=== PATIENT | male | born 1985 | race African-American/Black ===

== ENCOUNTER 2017-01-30 14:20 | Emergency (ER) | payer BC, OTHER ==
[2017-01-30 14:28] VITALS: TEMP 98; BMI 28.9
--- NOTE | 2017-01-30 15:21 | PDOC ---
History of Present Illness - General History Source: Patient Exam Limitations: No Limitations - History of Present Illness Initial Comments: 01/30/17 15:43 31 year old male with a PMHx of Graves disease who presents to the ED with intermittent palpitations for 2 weeks. Patient reports he ran out of his medications a few weeks ago and has not been able to get them refilled. He reports associated sweating and difficulty sleeping. He denies nausea, vomiting , diarrhea. He denies chest pain, SOB. Medications: Propranolol 10 mg 3x daily, Methimazole 10 mg 2x daily <Jennifer Mtz - Last Filed: 01/30/17 15:43> <Tariq Yo - Last Filed: 01/30/17 16:59> - General Chief Complaint: Palpitations Stated Complaint: PALPITATION Time Seen by Provider: 01/30/17 15:20 Past History <Jennifer Mtz - Last Filed: 01/30/17 15:43> - Past Medical History HTN: Yes Thyroid Disease: Yes (GRAVES DISEASE) - Surgical History Appendectomy: Yes - Psycho/Social/Smoking Cessation Hx Anxiety: No Suicidal Ideation: No Smoking History: Never smoked Have you smoked in the past 12 months: No Information on smoking cessation initiated: No Hx Alcohol Use: No Drug/Substance Use Hx: No Substance Use Type: None <Tariq Yo - Last Filed: 01/30/17 16:59> - Past Medical History Allergies/Adverse Reactions: Allergies Allergy/AdvReac Type Severity Reaction Status Date / Time No Known Allergies Allergy Verified 01/30/17 14:28 Home Medications: Ambulatory Orders Methimazole 0 mg PO DAILY 08/11/16 Propranolol HCl 0 mg PO DAILY 08/11/16 Methimazole 10 mg PO BID #60 tablet 01/30/17 Propranolol HCl 10 mg PO TID #90 tablet 01/30/17 Review of Systems - Review of Systems Able to Perform ROS?: Yes Comments:: 01/30/17 15:44 GENERAL/CONSTITUTIONAL: (+) diaphoresis, difficulty sleeping. No fever or chills. No weakness. HEAD, EYES, EARS, NOSE AND THROAT: No change in vision. No ear pain or discharge. No sore throat. CARDIOVASCULAR: (+) palpitations. No chest pain or shortness of breath. RESPIRATORY: No cough, wheezing, or hemoptysis. GASTROINTESTINAL: No nausea, vomiting, diarrhea or constipation. GENITOURINARY: dysuria, frequency, or change in urination. MUSCULOSKELETAL: No joint or muscle swelling or pain. No neck or back pain. SKIN: No rash NEUROLOGIC: No headache, vertigo, loss of consciousness, or change in strength/ sensation. ENDOCRINE: No increased thirst. No abnormal weight change. HEMATOLOGIC/LYMPHATIC: No anemia, easy bleeding, or history of blood clots. ALLERGIC/IMMUNOLOGIC: No hives or skin allergy. <Jennifer Mtz - Last Filed: 01/30/17 15:43> *Physical Exam - Vital Signs Last Vital Signs Temp Pulse Resp BP Pulse Ox 98 F 73 18 153/102 99 01/30/17 14:01/30/17 14:01/30/17 14:01/30/17 14:01/30/17 14:26 - Physical Exam Comments: 01/30/17 15:58 GENERAL: Awake, alert, and fully oriented, in no acute distress HEAD: No signs of trauma EYES: No proptosis, no exophthalmos, no lid lag. PERRLA, EOMI, sclera anicteric , conjunctiva clear ENT: Auricles normal inspection, hearing grossly normal, nares patent, oropharynx clear without exudates. Moist mucosa NECK: No palpable masses. Normal ROM, supple, no lymphadenopathy, JVD LUNGS: Breath sounds equal, clear to auscultation bilaterally. No wheezes, and no crackles HEART: Regular rate and rhythm, normal S1 and S2, no murmurs, rubs or gallops ABDOMEN: Soft, nontender, normoactive bowel sounds. No guarding, no rebound. No masses EXTREMITIES: Normal range of motion, no edema. No clubbing or cyanosis. No cords , erythema, or tenderness NEUROLOGICAL: Cranial nerves II through XII grossly intact. Normal speech, normal gait SKIN: Warm, Dry, normal turgor, no rashes or lesions noted. <Jennifer Mtz - Last Filed: 01/30/17 15:43> - Vital Signs Last Vital Signs Temp Pulse Resp BP Pulse Ox 98 F 73 18 153/102 99 01/30/17 14:01/30/17 14:01/30/17 14:01/30/17 14:01/30/17 14:26 <Tariq Yo - Last Filed: 01/30/17 16:59> Heart Score/ECG Review - ECG Intrepretation Rhythm: Regular Rhythm Comment:: 01/30/17 16:58 normal intervals, no QT prolongation, no delta wave. unremarkable EKG, rate 74 - [place]: Normal - ECG Impressions Normal ECG: Yes Non-specific ST Elevation: No Ischemic Changes: No <Tariq Yo - Last Filed: 01/30/17 16:59> ED Treatment Course - LABORATORY CBC & Chemistry Diagram: 01/30/17 16:04 01/30/17 16:04 <Tariq Yo - Last Filed: 01/30/17 16:59> Medical Decision Making - Medical Decision Making 01/30/17 16:04 31M with h/o grave's presents with intermittent palpitations x 3 weeks since running out of his propranolol and methimazole. Symptoms possibly related to hyperthyroidism. Pt with normal vitals here, but pt states he has been asymptomatic in ER. - labs, TSH, T4 - Propranolol 10mg - F/u endocrine <Tariq Yo - Last Filed: 01/30/17 16:59> *DC/Admit/Observation/Transfer - Attestations Scribe Attestion: 01/30/17 15:59 Documentation prepared by Jennifer Mtz, acting as nurses medical assistants phlebotomists for Tariq Yo MD. <Jennifer Mtz - Last Filed: 01/30/17 15:43> <Tariq Yo - Last Filed: 01/30/17 16:59> Diagnosis at time of Disposition: Palpitations - Discharge Dispostion Disposition: HOME - Prescriptions Prescriptions: Methimazole 10 mg PO BID #60 tablet Propranolol HCl 10 mg PO TID #90 tablet - Referrals Referrals: Akbar Flores MD [Staff Physician] - - Patient Instructions Printed Discharge Instructions: DI for Graves Disease Additional Instructions: Continue taking your methimazole and propranolol as prescribed. shop superintendent your refill at [facility]. Follow up with an optimization engineer as soon as possible (within 1 week). Call the above number to make an appointment.
[2017-01-30] MEDS ORDERED: PROPRANOLOL HCL 10 MG TABLET (FP) PO ONE (16:02)
[2017-01-30] MEDS ORDERED: PROPRANOLOL HCL 10 MG TABLET (FP) ONE (16:08)
[2017-01-30 16:23] LABS: BASOPHIL 0.5 % (0-2.0); MCH 31.4 pg (25.7-33.7); MCHC 33.4 g/dl (32.0-35.9); MEAN CELL VOLUME 94.2 fl (80-96); PLATELET COUNT 175 K/MM3 (134-434); RDW 12.6 % (11.9-15.9)
[2017-01-30 16:59] LABS: ALBUMIN 4.7 g/dl (3.4-5.0); ALK PHOS 106 U/L (45-117); ANION GAP 8 (8-16); BILIRUBIN,TOTAL 0.5 mg/dL (0.2-1.0); CALCIUM 9.3 mg/dL (8.5-10.1); CO2 28 mmol/L (21-32); CREATININE 1.2 mg/dL (0.7-1.3); GLUCOSE,RANDOM 85 mg/dL (74-106); MAGNESIUM 2.3 mg/dL (1.8-2.4); SGOT/AST 20 U/L (15-37); SGPT/ALT 47 U/L (12-78); TOT PROT 8.2 g/dl (6.4-8.2)
[2017-01-30 17:05] LABS: FREE T4 0.95 ng/dl (0.76-1.16); THYROID STIMULATING HORMONE 2.67 uIU/ml (0.358-3.74)
[2017-01-30 17:35] VITALS: BP 150/104; PULSE 66
--- NOTE | 2017-02-01 08:19 | EKG ---
Test Reason : Blood Pressure : / mmHG Vent. Rate : 074 BPM Atrial Rate : 074 BPM P-R Int : 164 ms QRS Dur : 094 ms QT Int : 374 ms P-R-T Axes : 046 044 028 degrees QTc Int : 415 ms NORMAL SINUS RHYTHM WITH SINUS ARRHYTHMIA NORMAL ECG WHEN COMPARED WITH ECG OF 11-AUG-2016 17:00, NO SIGNIFICANT CHANGE WAS FOUND Confirmed by KIRK TIAN MD ([id number]) on 02/01/2017 8:18:50 AM Referred By: Confirmed By:KIRK TIAN MD
== END 2017-01-30 17:35 | disposition home or self-care (01) ==
LOC: JER 14:20
DX: R00.2 Palpitations (principal); E05.00 Thyrotoxicosis with diffuse goiter without thyrotoxic crisis or storm; I10 Essential (primary) hypertension
CPT/HCPCS: 36415; 80053; 83735; 84439; 84443; 85025; 93005; 93010; 99283-25

== ENCOUNTER 2017-10-15 00:31 | Emergency (ER) | payer BC, OTHER ==
[2017-10-15 01:15] VITALS: BP 144/96; PULSE 62; TEMP 98.2; BMI 28.1
--- NOTE | 2017-10-15 01:25 | PDOC ---
History of Present Illness - General Chief Complaint: Palpitations Stated Complaint: PALPITATIONS Time Seen by Provider: 10/15/17 01:22 History Source: Patient Exam Limitations: No Limitations - History of Present Illness Initial Comments: CHIEF COMPLAINT: 32 y/o afebrile male with PMH HTN c/o palpitations, usually when sleeping, for the past few weeks. HISTORY OF PRESENT ILLNESS: The patient states he's noticed when he's sleeping he wakes up a lot and has felt his heart racing when he wakes up. His mom told him that he snores a lot. The patient denies f/c, n/v/d, CP, SOB, cough, hemoptysis, abd pain, palpitations while awake/exercising, family history of sudden cardiac , and all other symptoms. Vital signs on arrival are within normal limits. REVIEW OF SYSTEMS: GENERAL/CONSTITUTIONAL: No fever/chills. No weakness. No weight change. HEAD, EYES, EARS, NOSE AND THROAT: No change in vision. No ear pain or discharge. No sore throat. CARDIOVASCULAR: +palptations x a few weeks while sleeping. No chest pain or shortness of breath. RESPIRATORY: No cough, wheezing, or hemoptysis. GASTROINTESTINAL: No abd pain, nausea, vomiting, diarrhea. GENITOURINARY: No dysuria, frequency, or change in urination. MUSCULOSKELETAL: No joint or muscle swelling or pain. No neck or back pain. SKIN: No rash or easy bruising. NEUROLOGIC: No headache, vertigo, loss of consciousness, or loss of sensation. PHYSICAL EXAM: GENERAL: The patient is awake, alert, and fully oriented, in no acute distress. He is very well appearing, ambulatory, in NAD or obvious discomfort. HEAD: Normal with no signs of trauma. ENT: Pupils equal, round and reactive to light, extraocular movements intact, sclera anicteric, conjunctiva clear. Neck supple. LUNGS: Clear to auscultation bilaterally. Normal excursion. No respiratory distress or use of accessory muscles. CV: slow rate with regular rhythm, S1/S2, no MRG. Cap refill < 2 sec. ABDOMEN: Soft, non-distended, non-tender even to deep palpation, no hepatomegaly or splenomegaly, no masses. EXTREMITIES: Normal range of motion, no edema. NEUROLOGICAL: Normal speech, normal gait. CN II-XII grossly intact. PSYCH: Normal mood, normal affect. SKIN: Warm, dry, normal turgor, no rashes or lesions noted. Past History - Past Medical History Allergies/Adverse Reactions: Allergies Allergy/AdvReac Type Severity Reaction Status Date / Time No Known Allergies Allergy Verified 10/15/17 01:12 Home Medications: Ambulatory Orders Propranolol HCl 10 mg PO TID #90 tablet 01/30/17 COPD: No HTN: Yes Thyroid Disease: Yes (GRAVES DISEASE) - Surgical History Appendectomy: Yes - Suicide/Smoking/Psychosocial Hx Smoking History: Never smoked Have you smoked in the past 12 months: No Information on smoking cessation initiated: No Hx Alcohol Use: No Drug/Substance Use Hx: No Substance Use Type: None *Physical Exam - Vital Signs Last Vital Signs Temp Pulse Resp BP Pulse Ox 98.2 F 62 18 144/96 100 10/15/17 01:12 10/15/17 01:12 10/15/17 01:12 10/15/17 01:12 10/15/17 01:12 Heart Score/ECG Review - ECG Intrepretation Comment:: Twelve-lead EKG was performed and reviewed by Dr. Dewitt. There is sinus bradycardia. The axis is normal. The intervals are normal. There are no ST or T wave abnormalities. Impression: Otherwise normal twelve-lead EKG Medical Decision Making - Medical Decision Making A/P: 32 y/o male with heart racing when waking up from sleep with reported history of snoring. suspect possible sleep apnea. EKG shows sinus jeb. Will d/c to home with instructions to f/u with upset welding machine operator for home heart rate monitor and with Dr. Curtis for sleep study. Pt instructed to return to the ER with any worsening or concerning symptoms. The patient verbalizes understanding of all instructions, has no further questions and is awaiting discharge. *DC/Admit/Observation/Transfer Diagnosis at time of Disposition: Palpitations - Discharge Dispostion Disposition: HOME Condition at time of disposition: Good - Referrals Referrals: Donavan Curtis [Primary Care Provider] - Call tomorrow Joo Philip MD [Staff Physician] - 1 week - Patient Instructions Printed Discharge Instructions: DI for Palpitations Additional Instructions: Discharge Instructions: -Your EKG showed sinus bradycardia with a HR of 54bpm -Please follow up with Dr. Philip within 1 week for a possible home heart rate monitor -Follow up with Dr. Curtis for a sleep study -Return to the ER immediately with any worsening or concerning symptoms - Post Discharge Activity
--- NOTE | 2017-10-15 09:35 | EKG ---
Test Reason : Blood Pressure : / mmHG Vent. Rate : 054 BPM Atrial Rate : 054 BPM P-R Int : 168 ms QRS Dur : 092 ms QT Int : 424 ms P-R-T Axes : 052 034 036 degrees QTc Int : 402 ms SINUS BRADYCARDIA OTHERWISE NORMAL ECG WHEN COMPARED WITH ECG OF 30-JAN-2017 14:27, NO SIGNIFICANT CHANGE WAS FOUND Confirmed by KIRK TIAN MD ([id number]) on 10/15/2017 9:34:45 AM Referred By: Confirmed By:KIRK TIAN MD
== END 2017-10-15 01:50 | disposition home or self-care (01) ==
LOC: JER 00:31
DX: R00.2 Palpitations (principal); E05.00 Thyrotoxicosis with diffuse goiter without thyrotoxic crisis or storm; I10 Essential (primary) hypertension
CPT/HCPCS: 93005; 93010; 99282-25

== ENCOUNTER 2018-02-27 01:10 | Emergency (ER) | payer BC, OTHER ==
--- NOTE | 2018-02-27 02:51 | PDOC ---
History of Present Illness - History of Present Illness Initial Comments: 02/27/18 03:34 The patient is a 32 year old male, with a significant past medical history of hypothyroidism s/p hyperthyroidism, who presents to the emergency department with palpitations starting at 11:30PM last night. He states he felt his heartbeat was fast and strong. He reports the episode occurred for about 20 minutes before resolving on its own. He reports a similar episode about 1-2 months ago which resolved on its own at the time. He reportedly drove to [place] and returned about 2 weeks ago. He denies weight gain or loss. He denies changes in appetite. The patient denies chest pain, shortness of breath, headache and dizziness. The patient denies fever, chills, nausea, vomit, diarrhea and constipation. The patient denies dysuria, frequency, urgency and hematuria. Allergies: NKDA Past surgical history: none reported. Social history: denies tobacco, ETOH, and illicit drug use PCP - Dr. Donavan Curtis Endo: Dr. Flores <Ashlee Vang - Last Filed: 02/27/18 06:57> - General History Source: Patient Exam Limitations: No Limitations <Deepika Manzo - Last Filed: 02/28/18 05:19> - General Stated Complaint: PALPITATIONS Time Seen by Provider: 02/27/18 02:50 Past History <Ashlee Vnag - Last Filed: 02/27/18 06:57> - Past Medical History COPD: No HTN: Yes Thyroid Disease: Yes (GRAVES DISEASE) - Surgical History Appendectomy: Yes - Suicide/Smoking/Psychosocial Hx Smoking History: Never smoked Have you smoked in the past 12 months: No Hx Alcohol Use: No Drug/Substance Use Hx: No Substance Use Type: None <Deepika Manzo - Last Filed: 02/28/18 05:19> - Past Medical History Allergies/Adverse Reactions: Allergies Allergy/AdvReac Type Severity Reaction Status Date / Time No Known Allergies Allergy Verified 02/27/18 03:25 Home Medications: Ambulatory Orders Levothyroxine [Synthroid -] 50 mcg PO DAILY 01/07/18 Review of Systems - Review of Systems Able to Perform ROS?: Yes Comments:: 02/27/18 03:35 CONSTITUTIONAL: Absent: fever, no chills, no fatigue EYES: Absent: visual changes ENT: Absent: ear pain, no sore throat CARDIOVASCULAR: (+) Palpitations. Absent: chest pain, RESPIRATORY: Absent: cough, no SOB GASTROINTESTINAL: Absent: abdominal pain, no nausea, no vomiting, no constipation, no diarrhea GENITOURINARY: Absent: dysuria, no frequency, no hematuria MUSCULOSKELETAL: Absent: back pain, no arthralgia, no myalgia SKIN: Absent: rash NEURO: Absent: headache <Ashlee Vang - Last Filed: 02/27/18 06:57> *Physical Exam - Vital Signs Last Vital Signs Temp Pulse Resp BP Pulse Ox 97.4 F L 88 18 123/77 98 02/27/18 01:30 02/27/18 01:30 02/27/18 01:30 02/27/18 01:30 02/27/18 01:30 - Physical Exam Comments: 02/27/18 03:36 GENERAL: The patient is in no acute distress. HEAD: Normal with no signs of trauma. EYES: PERRLA, EOMI, sclera anicteric, conjunctiva clear. ENT: Ears normal, nares patent, oropharynx clear without exudates. Moist mucous membranes. NECK: Normal range of motion, supple without lymphadenopathy, JVD, or masses. LUNGS: Breath sounds equal, clear to auscultation bilaterally. No wheezes, and no crackles. HEART:(+) Irregular rhythm, normal rate. normal S1 and S2 without murmur, rub or gallop. ABDOMEN: Soft, nontender, normoactive bowel sounds. No guarding, no rebound. No masses palpable. EXTREMITIES: Normal range of motion, no edema. No clubbing or cyanosis. No erythema, or tenderness. NEUROLOGICAL: Cranial nerves II through XII grossly intact. Normal speech. No focal neurological deficits. MUSCULOSKELETAL: Back non-tender to palpation, no CVA tenderness SKIN: Warm, Dry, normal turgor, no rashes or lesions noted. <Ashlee Vang - Last Filed: 02/27/18 06:57> Heart Score/ECG Review - ECG Intrepretation Comment:: 02/27/18 03:36 EKg was read by Dr. Manzo at 03:22 Impression: Atrial Fibrillation. Vent Rate 85 bpm <Ashlee Vang - Last Filed: 08/31/18 06:57> ED Treatment Course - LABORATORY CBC & Chemistry Diagram: 02/27/18 03:20 02/27/18 03:20 <Ashlee Vang - Last Filed: 02/27/18 06:57> - LABORATORY CBC & Chemistry Diagram: 02/27/18 03:20 02/27/18 03:20 <Deepika Manzo - Last Filed: 02/28/18 05:19> Medical Decision Making - Medical Decision Making 02/27/18 06:17 Dr. Ortega, cardiology, was called at this time via phone answering service and the case was discussed. Dr. Ortega states the patient can be discharged only if he can call the office at 8:30AM to schedule an appointment today. <Ashlee Vang - Last Filed: 02/27/18 06:57> - Medical Decision Making 02/27/18 03:18 Mr. Newman is a 32-year-old male with a history of Graves' disease, now with hypothyroidism currently taking Synthroid. He presents emergency department with a complaint of palpitations. These symptoms occurred at 11:30 last night, lasting less than 20 minutes and self resolving. He had a similar episode approximately one month ago. His symptoms were not associated with chest pain, shortness of breath. Patient had a recent travel to [place], 2 weeks ago, drove there This patient's examination is normal: He is awake, alert, answers all questions Heart is regular with no murmurs Lungs are clear to auscultation bilaterally No abdominal tenderness DD: Hyperthyroid, Arrhythmia - SVT, Afib ACS unlikely Will do: EKG, labs including TSH Will reassess Laboratory Tests 02/27/18 02/27/18 02/27/18 03:20 03:20 05:28 WBC 5.2 Hgb 15.8 Hct 45.5 Plt Count 204 BUN 10 Creatinine 1.1 Creatine Kinase 153 Creatine Kinase Index 0.6 CK-MB (CK-2) < 1.00 Troponin I < 0.02 TSH 0.16 L D [id number] 0 making stroke very low, pt likely will not need anticoagulation Furthermore, pt TSH is low, ? afib related to hyperthyroid state? Given Asa 325mg po 02/27/18 06:[address] Gibson Recommends calling Dr Saldivar this am to ensure prompt follow up prior to discharge Pt signed out to Dr Garcia pending discussion with Yariel Pt asked to follow up with Dr. Flores for adjustment of synthroid dosing Clinical Impression: New Onset Atrial Fibrillation, initial presentation Hyperthyroid state, initial presentation <Deepika Manzo - Last Filed: 02/28/18 05:19> *DC/Admit/Observation/Transfer - Attestations Scribe Attestion: 02/27/18 03:36 Documentation prepared by Ashlee Vang, acting as medical practice administrator for Deepika Manzo MD <Ashlee Vang - Last Filed: 02/27/18 06:57> - Discharge Dispostion Decision to Admit order: No <Deepika Manzo - Last Filed: 02/28/18 05:19> Diagnosis at time of Disposition: Afib Qualifiers: Atrial fibrillation type: unspecified Qualified Code(s): I48.91 - Unspecified atrial fibrillation - Discharge Dispostion Disposition: HOME Condition at time of disposition: Stable - Referrals Referrals: Luis M Saldivar MD [Staff Physician] - - Patient Instructions Printed Discharge Instructions: DI for Atrial Fibrillation Additional Instructions: Thank you for coming in to the ER today Please be sure to follow up TODAY with the multicraft operator Return to the ER for any other concerns or complaints Call [phone] (cardiology) to schedule a same day appointment for today. Tell Davey (field health officer) that we had consulted with Dr. Schuler and he requests someone see you today. Print Language: [place]
[2018-02-27 03:25] VITALS: BMI 26.6
[2018-02-27 03:41] LABS: BASO % 0.7 % (0-2.0); EOS % 4.9 % (0-4.5); HEMATOCRIT 45.5 % (35.4-49); HEMOGLOBIN 15.8 GM/dL (11.7-16.9); LYMPH % 38.6 % (8-40); MCHC 34.7 g/dl (32.0-35.9); MONO % 8.1 % (3.8-10.2); NEUT % 47.7 % (42.8-82.8); PLATELET COUNT 204 K/MM3 (134-434); RBC 4.94 M/mm3 (4.00-5.60); RDW 12.1 % (11.9-15.9); WHITE BLOOD COUNT 5.2 K/mm3 (4.0-10.0)
[2018-02-27 04:01] LABS: ALBUMIN 4.1 g/dl (3.4-5.0); ANION GAP 7 MMOL/L (8-16); BILIRUBIN,TOTAL 0.4 mg/dL (0.2-1.0); BLOOD UREA NITROGEN 10 mg/dL (7-18); CALCIUM 8.6 mg/dL (8.5-10.1); CHLORIDE 106 mmol/L (98-107); CO2 27 mmol/L (21-32); CREATININE 1.1 mg/dL (0.7-1.3); GLUCOSE,RANDOM 98 mg/dL (74-106); POTASSIUM 3.9 mmol/L (3.5-5.1); SGOT/AST 22 U/L (15-37); SGPT/ALT 37 U/L (12-78); SODIUM 140 mmol/L (136-145); TOT PROT 7.5 g/dl (6.4-8.2)
[2018-02-27 04:10] LABS: ALK PHOS 71 U/L (45-117)
[2018-02-27] MEDS ORDERED: ASPIRIN 325 MG TABLET PO ONE (06:57)
[2018-02-27] MEDS ORDERED: ASPIRIN 325 MG TABLET ONE (07:53)
--- NOTE | 2018-02-27 07:57 | PDOC ---
*Physical Exam - Vital Signs Last Vital Signs Temp Pulse Resp BP Pulse Ox 97.4 F L 88 18 123/77 98 02/27/18 01:30 02/27/18 01:30 02/27/18 01:30 02/27/18 01:30 02/27/18 01:30 <Kami Shetty - Last Filed: 02/27/18 08:32> - Vital Signs Last Vital Signs Temp Pulse Resp BP Pulse Ox 97.4 F L 88 18 123/77 98 02/27/18 01:30 02/27/18 01:30 02/27/18 01:30 02/27/18 01:30 02/27/18 01:30 <Tay Garcia - Last Filed: 02/27/18 09:22> ED Treatment Course - LABORATORY CBC & Chemistry Diagram: 02/27/18 03:20 02/27/18 03:20 - ADDITIONAL ORDERS Additional order review: Laboratory Results 02/27/18 02/27/18 05:28 03:20 Sodium 140 Potassium 3.9 Chloride 106 Carbon Dioxide 27 Anion Gap 7 L BUN 10 Creatinine 1.1 Creat Clearance w eGFR > 60 Random Glucose 98 Calcium 8.6 Total Bilirubin 0.4 AST 22 ALT 37 D Alkaline Phosphatase 71 Creatine Kinase 153 Creatine Kinase Index 0.6 CK-MB (CK-2) < 1.00 Troponin I < 0.02 Total Protein 7.5 Albumin 4.1 TSH 0.16 L D 02/27/18 03:20 RBC 4.94 MCV 92.0 MCHC 34.7 RDW 12.1 MPV 9.0 Neutrophils % 47.7 D Lymphocytes % 38.6 D Monocytes % 8.1 Eosinophils % 4.9 H D Basophils % 0.7 - Medications Given in the ED: ED Medications Discontinued Medications Generic Name Dose Route Start Last Admin Trade Name Freq PRN Reason Stop Dose Admin Aspirin 325 mg 02/27/18 06:57 02/27/18 07:52 Asa - PO 02/27/18 06:58 325 mg ONCE ONE Administration <Kami Shetty - Last Filed: 02/27/18 08:32> - LABORATORY CBC & Chemistry Diagram: 02/27/18 03:20 02/27/18 03:20 - ADDITIONAL ORDERS Additional order review: Laboratory Results 02/27/18 02/27/18 05:28 03:20 Sodium 140 Potassium 3.9 Chloride 106 Carbon Dioxide 27 Anion Gap 7 L BUN 10 Creatinine 1.1 Creat Clearance w eGFR > 60 Random Glucose 98 Calcium 8.6 Total Bilirubin 0.4 AST 22 ALT 37 D Alkaline Phosphatase 71 Creatine Kinase 153 Creatine Kinase Index 0.6 CK-MB (CK-2) < 1.00 Troponin I < 0.02 Total Protein 7.5 Albumin 4.1 TSH 0.16 L D 02/27/18 03:20 RBC 4.94 MCV 92.0 MCHC 34.7 RDW 12.1 MPV 9.0 Neutrophils % 47.7 D Lymphocytes % 38.6 D Monocytes % 8.1 Eosinophils % 4.9 H D Basophils % 0.7 - Medications Given in the ED: ED Medications Discontinued Medications Generic Name Dose Route Start Last Admin Trade Name Freq PRN Reason Stop Dose Admin Aspirin 325 mg 02/27/18 06:57 02/27/18 07:52 Asa - PO 02/27/18 06:58 325 mg ONCE ONE Administration <Tay Garcia - Last Filed: 02/27/18 09:22> Medical Decision Making - Medical Decision Making Paged Dr. Saldivar - Cardiology 02/27/18 08:32 <Kami Shetty - Last Filed: 02/27/18 08:32> - Medical Decision Making 02/27/18 07:56 pt signd out to me from Dr. Jovany [facility] of [facility] now on synthroid presents with intermittent episode of palpitations last night, found to be in afib. no cp, sob bu tprior history of driving from [facility] 1 month ago. awaiting dimer. will also touch base with cardiology to see if we can get him into the office for follow up today. [id number] = 0 02/27/18 08:[address] Moser (cardiology) notes that Dr. Saldivar is on vacation, but he can clal their office for an appointment today [phone] awiting dimer 02/27/18 09:16 Pts dimer is negative pt feel simproved will dc the pt to fu with cardiology today return precautions were discused pt currently asymptomatic. I discussed the physical exam findings, ancillary test results and final diagnoses with the patient. I answered all of the patient's questions. The patient was satisfied with the care received and felt comfortable with the discharge plan and treatment plan. The patient will call their primary care physician within 24 hours to arrange follow-up and will return to the Emergency Department with any new, persistent or worsening symptoms. <Tay Garcia - Last Filed: 02/27/18 09:22> *DC/Admit/Observation/Transfer <Kami Shetty - Last Filed: 02/27/18 08:32> <Tay aGrcia - Last Filed: 02/27/18 09:22> Diagnosis at time of Disposition: Afib Qualifiers: Atrial fibrillation type: unspecified Qualified Code(s): I48.91 - Unspecified atrial fibrillation - Discharge Dispostion Condition at time of disposition: Stable - Referrals Referrals: Luis M Saldivar MD [Staff Physician] - - Patient Instructions Printed Discharge Instructions: DI for Atrial Fibrillation Additional Instructions: Thank you for coming in to the ER today Please be sure to follow up TODAY with the pipe installer Return to the ER for any other concerns or complaints Call [phone] (cardiology) to schedule a same day appointment for today. Tell Davey (chief business officer) that we had consulted with Dr. Schuler and he requests someone see you today. Print Language: [place]MAN[place] - Post Discharge Activity
[2018-02-27 09:31] VITALS: BP 134/86; PULSE 82; TEMP 97.8
--- NOTE | 2018-02-27 10:30 | EKG ---
Test Reason : Blood Pressure : / mmHG Vent. Rate : 085 BPM Atrial Rate : 081 BPM P-R Int : 000 ms QRS Dur : 094 ms QT Int : 332 ms P-R-T Axes : 000 055 019 degrees QTc Int : 395 ms ATRIAL FIBRILLATION ABNORMAL ECG WHEN COMPARED WITH ECG OF 07-JAN-2018 08:52, ATRIAL FIBRILLATION HAS REPLACED SINUS RHYTHM Confirmed by KIRK TIAN MD ([id number]) on 02/27/2018 10:29:57 AM Referred By: Confirmed By:KIRK TINA MD
== END 2018-02-27 09:31 | disposition home or self-care (01) ==
LOC: JER 01:10
DX: I48.91 Unspecified atrial fibrillation (principal); E05.00 Thyrotoxicosis with diffuse goiter without thyrotoxic crisis or storm; I10 Essential (primary) hypertension
CPT/HCPCS: 36415; 80053; 82550; 82553; 84443; 84484; 85025; 85379; 93005; 93010; 99285-25